=== PATIENT | female | born 1970 | race Two or more races ===

== ENCOUNTER 2020-04-03 16:39 | Outpatient (CLI) | payer OTHER | END 2020-04-03 17:14 | disposition home or self-care (01) | LOC: RAD 16:39 | DX: M79.671 Pain in right foot (principal) ==

== ENCOUNTER 2020-05-21 23:29 | Emergency (ER) | payer OTHER ==
[~2020-05-21] VITALS: Ht 152.4 cm; Wt 88.5 kg
[2020-05-22] MEDS ORDERED: ZOFRAN8 MG PO (04:05)
== END 2020-05-22 04:18 | disposition home or self-care (01) ==
LOC: ER 23:29
DX: G43.109 Migraine with aura, not intractable, without status migrainosus (principal)